=== PATIENT | male | born 1960 | race Caucasian/White ===

== ENCOUNTER → 2018-06-07 | Outpatient (CLI) | payer BC ==
--- NOTE | 2018-06-10 10:49 | PCVCIMAG ---
APPROVED REPORT Study performed: 06/07/2018 13:23:23 Exam: Stress Echocardiogram Indication: Dyspnea, exercise intolerence Patient Location: Echo lab Stress Nurse: Katya Cheng RN Room #: 2 Status: routine Ht: 5 ft 9 in HR: 85 bpm BP: 126/86 mmHg Rhythm: NSR Medical History Medical History: HTN, Hyperlipidemia Cardiac Risk Factors: HTN, Hyperlipidemia, FHX of CAD Pretest Chest Pain Characteristics: No chest pain Exercise History: Physically active Procedure The patient underwent an Exercise Stress Test using the Shannon Protocol. Blood pressure, heart rate, and EKG were monitored. An Echocardiogram was performed by health record technician in four stages in quad fashion. At peak stress, four selected images were obtained and placed side by side with resting images for comparison. Stress Test Details Stress Test: Exercise stress testing was performed using a Shannon protocol. HR Resting HR: 78 bpmMax Heart Rate (APMHR): 162 bpm Max HR Achieved: 181 bpmTarget HR (85% APMHR): 137 bpm % of APMHR: 111 Recovery HR: 89 bpm HR response to stress: Normal HR response to stress BP Resting BP: 126/86 mmHg Max BP: 170/80 mmHg Recovery BP: 120/82 mmHg ECG Resting ECG: Sinus Rhythm, NSSTT changes Stress ECG: Sinus Rhythm, NSSTT changes ST Change: Non-ischemic Arrhythmia: Frequent PVCs at peak exercise Recovery ECG: Sinus Rhythm, NSSTT changes Recovery ST Change: Non-ischemic Recovery Arrhythmia: rare pvc Clinical Reason for Termination: Maximal effort Stress Symptoms: fatigue,dyspnea Exercise duration: 10 min 49 sec Highest Stage Achieved: Stage 4: 4.2 mph at 16% grade. Exercise capacity: 13.4 METs Overall Exercise Capacity for Age: Good Scale: Active Angina Score: None No complications. Stress ECG Conclusion The patient exercised according to the SHANNON protocol for 10:49 mins; achieving a work level of 13.4 METS. The resting heart rate of 78 bpm rex to a maximum heart rate of 181 bpm. This value represent 111% of the maximal, age-predicted heart rate. The resting blood pressure of 126/86 mmHg, rex to a maximum blood pressure of 170/80 mmHg. The exercise test was stopped due to dyspnea,fatigue . Pre-Stress Echo The resting Echocardiogram showed normal left ventricular contractility with an estimated Ejection Fraction of about 55-60%. Normal wall motion in all segments on baseline images. Post-Stress Echo The stress Echocardiogram showed normal left ventricular contractility with an estimated Ejection Fraction of about 65-70%. Normal augmentation of wall motion in all segments on post stress images. Clinical No clinical or ECG evidence for ischemia. Conclusion Clinical Response: Non-ischemic Exercise Capacity: Superior Stress ECG Response: Non-ischemic Stress Echo Images: Non-ischemic No clinical, EKG or echocardiographic evidence for ischemia. No echocardiographic evidence for exercise induced ischemia. Normal stress echocardiogram with maximal exercise stress. <Conclusion> No clinical, EKG or echocardiographic evidence for ischemia. No echocardiographic evidence for exercise induced ischemia. Normal stress echocardiogram with maximal exercise stress.
== END | disposition home or self-care (01) ==
LOC: PCVCIMAG 15:48
PROVIDERS: ATTEND Internal Medicine Cardiovascular Disease
DX: R06.09 Other forms of dyspnea (principal); I10 Essential (primary) hypertension
CPT/HCPCS: 93325; 93351

== ENCOUNTER → 2019-10-16 | Outpatient (CLI) | payer BC ==
--- NOTE | 2019-10-16 19:13 | PCVCIMAG ---
APPROVED REPORT Study performed: 10/16/2019 15:36:14 Exam: Stress Echocardiogram Indication: Chest pain , Hypertension, Dyspnea Patient Location: Echo lab Stress Nurse: Evelyn Lopez RN Room #: 2 Status: routine Ht: 5 ft 9 in HR: 56 bpm BP: 156/86 mmHg Rhythm: NSR Medical History Medical History: HTN, Hyperlipidemia Cardiac Risk Factors: FHX of CAD, HTN, Hyperlipidemia Previous Cardiac Procedures: none Pretest Chest Pain Characteristics: No chest pain Exercise History: Physically active Procedure The patient underwent an Exercise Stress Test using the Kendall Protocol. Blood pressure, heart rate, and EKG were monitored. An Echocardiogram was performed by planetarium technician in four stages in quad fashion. At peak stress, four selected images were obtained and placed side by side with resting images for comparison. Stress Test Details Stress Test: Exercise stress testing was performed using a Kendall protocol. HR Resting HR: 56 bpmMax Heart Rate (APMHR): 160 bpm Max HR Achieved: 146 bpmTarget HR (85% APMHR): 136 bpm % of APMHR: 91 Recovery HR: 78 bpm HR response to stress: Normal HR response to stress BP Resting BP: 156/86 mmHg Max BP: 180/70 mmHg Recovery BP: 142/80 mmHg BP response to stress: Normal blood pressure response to stress. ECG Resting ECG: Sinus Rhythm Stress ECG: Sinus Rhythm, NSSTT changes ST Change: Non-ischemic Maximum ST Deviation: -1.20 mm Arrhythmia: occ PVCs,PVC couplets,PACs Recovery ECG: Sinus Rhythm Recovery ST Change: Non-ischemic Recovery ST Deviation: -1.05 mm Recovery Arrhythmia: rare PVC,PAC Clinical Reason for Termination: Maximal effort Stress Symptoms: fatigue Exercise duration: 10 min 29 sec Highest Stage Achieved: Stage 4: 4.2 mph at 16% grade. Exercise capacity: 13.7 METs Overall Exercise Capacity for Age: Good Scale: Active Angina Score: None No complications. Stress ECG Conclusion Guevara Treadmill Score is 16.0 which is Low risk. Pre-Stress Echo The resting Echocardiogram showed normal left ventricular contractility with an estimated Ejection Fraction of about 55-60%. Normal wall motion in all segments on baseline images. Post-Stress Echo The stress Echocardiogram showed normal left ventricular contractility with an estimated Ejection Fraction of about 65-70%. Normal augmentation of wall motion in all segments on post stress images. Clinical No clinical or ECG evidence for ischemia. Conclusion Clinical Response: Non-ischemic Exercise Capacity: Superior Stress ECG Response: Non-ischemic Stress Echo Images: Non-ischemic No echocardiographic evidence for exercise induced ischemia. No clinical, EKG or echocardiographic evidence for ischemia. Normal stress echocardiogram with maximal exercise stress. Normal color doppler. No significant stenosis or regurgitation seen in the mitral,aortic,tricuspid or pulmonic valves. <Conclusion> No echocardiographic evidence for exercise induced ischemia. No clinical, EKG or echocardiographic evidence for ischemia. Normal stress echocardiogram with maximal exercise stress. Normal color doppler. No significant stenosis or regurgitation seen in the mitral,aortic,tricuspid or pulmonic valves.
== END | disposition home or self-care (01) ==
LOC: PCVCIMAG 15:23
PROVIDERS: ATTEND Internal Medicine Cardiovascular Disease
DX: I10 Essential (primary) hypertension (principal); E78.5 Hyperlipidemia, unspecified; I25.10 Atherosclerotic heart disease of native coronary artery without angina pectoris
CPT/HCPCS: 93325; 93351